=== PATIENT | female | born 1955 | race Caucasian/White ===

== ENCOUNTER 2017-02-03 18:07 | Emergency (ER) | payer OTHER ==
[2017-02-03 18:29] VITALS: BP 146/96; PULSE 79; TEMP 97.8; BMI 27.4
--- NOTE | 2017-02-03 18:50 | PDOC ---
History of Present Illness - History of Present Illness Initial Comments: Patient is a 61 year old female with significant medical hx of hypothyroidism and nephrolithiasis (s/p lithotripsy 01/29) who has been sent to the ED for CT scan to rule out kidney stone. Patient has a history of two kidney stones, one obstructing that was successfully removed during lithotripsy, and another localized to the left lower lobe. The patient states that after the procedure, the second stone was unable to be found, and she was subsequently treated with "medicine used to dissolve it". The patient began having colicky left flank pain again five days ago and went to [facility] today where she received a CBC, chemistry, urine, and renal US. The US did not reveal a kidney stone, and so the patient was referred to the ED by urologist for CT scan. Urologist: Denny Jackson MD Surgical Hx: D&C, ureteral stent placement x2 <Stephy Casper - Last Filed: 02/03/17 21:09> <Sarita Heard - Last Filed: 02/03/17 21:30> - General Chief Complaint: Pain Stated Complaint: PCP SENT/PAIN, ACUTE Time Seen by Provider: 02/03/17 18:24 Past History <Stephy Casper - Last Filed: 02/03/17 21:09> - Past Medical History Cardiac Disorders: Yes (mvp) Kidney Stones: Yes Thyroid Disease: Yes (hypo) Other medical history: mycosis fungoides stage 1 ( skin) - Psycho/Social/Smoking Cessation Hx Anxiety: No Suicidal Ideation: No Smoking History: Never smoked Have you smoked in the past 12 months: No Information on smoking cessation initiated: No Hx Alcohol Use: No Drug/Substance Use Hx: No Substance Use Type: None <Sarita Heard - Last Filed: 02/03/17 21:30> - Past Medical History Allergies/Adverse Reactions: Allergies Allergy/AdvReac Type Severity Reaction Status Date / Time azithromycin Allergy Verified 02/03/17 18:22 [From Zithromax Z-Micha] clindamycin Allergy Verified 02/03/17 18:22 doxycycline Allergy Verified 02/03/17 18:22 gentamicin Allergy Verified 02/03/17 18:22 latex Allergy Verified 02/03/17 18:22 levofloxacin [From Levaquin] Allergy Verified 02/03/17 18:22 sulfamethoxazole Allergy Verified 02/03/17 18:22 [From Bactrim] trimethoprim [From Bactrim] Allergy Verified 02/03/17 18:22 Home Medications: Ambulatory Orders Levothyroxine Sodium [Levo-T] 62.5 mcg PO DAILY 02/03/17 Review of Systems - Review of Systems Comments:: 02/03/17 19:22 CONSTITUTIONAL: Absent: fever, chills, diaphoresis, generalized weakness, malaise, loss of appetite HEENT: Absent: rhinorrhea, nasal congestion, throat pain, throat swelling, difficulty swallowing, mouth swelling, ear pain, eye pain, visual changes CARDIOVASCULAR: Absent: chest pain, syncope, palpitations, irregular heart rate, lightheadedness , peripheral edema RESPIRATORY: Absent: cough, shortness of breath, dyspnea with exertion, orthopnea, wheezing, stridor, hemoptysis GASTROINTESTINAL: Absent: abdominal pain, abdominal distension, nausea, vomiting, diarrhea, constipation, melena, hematochezia GENITOURINARY: Absent: dysuria, frequency, urgency, hesitancy, hematuria, flank pain, genital pain MUSCULOSKELETAL: Present: left flank pain Absent: myalgia, arthralgia, joint swelling SKIN: Absent: rash, itching, pallor HEMATOLOGIC/IMMUNOLOGIC: Absent: easy bleeding, easy bruising, lymphadenopathy, frequent infections ENDOCRINE: Absent: unexplained weight gain, unexplained weight loss, heat intolerance, cold intolerance NEUROLOGIC: Absent: headache, focal weakness or paresthesia, dizziness, unsteady gait, seizure, mental status changes, bladder or bowel incontinence. PSYCHIATRIC: Absent: anxiety, depression, suicidal or homicidal ideation, hallucinations <Pennie,Stephy - Last Filed: 02/03/17 21:09> *Physical Exam - Vital Signs Last Vital Signs Temp Pulse Resp BP Pulse Ox 97.8 F 79 18 146/96 100 02/03/17 18:23 02/03/17 18:23 02/03/17 18:23 02/03/17 18:23 02/03/17 18:23 - Physical Exam Comments: 02/03/17 19:22 GENERAL: Well developed, well nourished. Awake and alert. No acute distress. HEENT: Normocephalic, atraumatic. PERRLA, EOMI. No conjunctival pallor. Sclera are non- icteric. Moist mucous membranes. Oropharynx is clear. NECK: Supple. Full ROM. No JVD. Carotid pulses 2+ and symmetric, without bruits. No thyromegaly. No lymphadenopathy. CARDIOVASCULAR: Regular rate and rhythm. No murmurs, rubs, or gallops. Distal pulses are 2+ and symmetric. PULMONARY: No evidence of respiratory distress. Lungs clear to auscultation bilaterally. No wheezing, rales or rhonchi. ABDOMINAL: Soft. Non-tender. Non-distended. No rebound or guarding. No organomegaly. Normoactive bowel sounds. MUSCULOSKELETAL: Normal range of motion at all joints. Left flank tenderness. No bony deformities. EXTREMITIES: No cyanosis. No clubbing. No edema. No calf tenderness. SKIN: Warm and dry. Normal capillary refill. No rashes. No jaundice. NEUROLOGICAL: Alert, awake, appropriate. Cranial nerves 2-12 intact. Normal speech. Gait is normal without ataxia. PSYCHIATRIC: Cooperative. Good eye contact. Appropriate mood and affect. <Stephy Casper - Last Filed: 02/03/17 21:09> - Vital Signs Last Vital Signs Temp Pulse Resp BP Pulse Ox 97.8 F 79 18 146/96 100 02/03/17 18:23 02/03/17 18:23 02/03/17 18:23 02/03/17 18:23 02/03/17 18:23 <Sarita Heard - Last Filed: 02/03/17 21:30> ED Treatment Course - RADIOLOGY Radiograph Interpretation: 02/03/17 21:09 Informaticist: [email or web address] ann) Report Date: 02/03/2017 19:57:00 Report Status: Preliminary Begin of Report Content Referring Physician: Sarita Heard Patient Name: Erin Parnell THIS IS A PRELIMINARY REPORT FROM [facility] DATE OF SERVICE: 2017-02-03 19:57:47.0 IMAGES: [id number] EXAM: CT abdomen and pelvis without contrast COMPARISON: None. IMPRESSION: No hydronephrosis. No nephrolithiasis. No ureteral calculi. No fluid collection. Urinary bladder is decompressed limiting assessment. No bowel obstruction or free air. No appendicitis. Diverticulosis. Subcentimeter hepatic hypodensity too small to characterize. Arthrosis of spine. THIS DOCUMENT HAS BEEN ELECTRONICALLY SIGNED Soha Henderson MD. 02/03/2017 21:01 PRIMO Grier Please call [facility] [phone] ([phone]) with questions. End of Report Content <Stephy Casper - Last Filed: 02/03/17 21:09> Medical Decision Making - Medical Decision Making 02/03/17 18:54 61 yo female s/p lithotripsy last went to [facility] today and had blood work and US done -US did not reveal any stones and her urologist Dr Haleigh Jackson wants her to have ct scan -no fever,no vomiting,no chest pain,no sob 02/03/17 21:28 labs done earlier today reviewed and were unremarkab;e ctscan did not show any obstructing ureteral stones ,no hydronephrosis Dr Laurel Jackson's office called Dr Haleigh Jackson said to discharge and he will see in the office <Sarita Heard - Last Filed: 02/03/17 21:30> *DC/Admit/Observation/Transfer - Attestations Scribe Attestion: 02/03/17 19:24 Documentation prepared by Stephy Casper, acting as medical coding manager for Sarita Heard MD. <Stephy Casper - Last Filed: 02/03/17 21:09> <Sarita Heard - Last Filed: 02/03/17 21:30> Diagnosis at time of Disposition: Flank pain, History of kidney stones - Discharge Dispostion Disposition: HOME Condition at time of disposition: Stable - Patient Instructions Printed Discharge Instructions: DI for Flank Pain Additional Instructions: 61-year-old female status post lithotripsy on Saturday presented with some flank pain She did go to urgent care Center today and have labs and urine done. She also had a kidney ultrasound that was negative. -her urologist Dr Laurel Jackson wanted her to have a CAT scan done and therefore she was sent to the emergency department CAT scan was negative for any hydronephrosis, nephrolithiasis, there was no signs of obstruction, no appendicitis, no diverticulitis and no small bowel obstruction Patient does not have a fever. She does not have vomiting. The labs that were done at the urgent care Center were reviewed and were unremarkable Patient discharged home. She already has an appointment with Dr. Jackson on
== END 2017-02-03 21:29 | disposition home or self-care (01) ==
LOC: JER 18:07
DX: R10.32 Left lower quadrant pain (principal); Z87.442 Personal history of urinary calculi; E03.9 Hypothyroidism, unspecified
CPT/HCPCS: 74176; 99282-25